=== PATIENT | female | born 1960 ===

== ENCOUNTER 2024-07-05 05:44 | Day surgery (SDC) | payer OTHER ==
[~2024-07-05] VITALS: Ht 157.5 cm; Wt 60.3 kg
[~2024-07-05 05:44] MED LIST: ACTIVELLA 1 MG1 EACH PO; CIDAFLEX TABLE1 EACH PO; COZAAR50 MG PO; FLECAINIDE ACET50 MG PO; MULTIPLE VITAM1 EAC2 PO; PROMETRIUM200 MG PO
[2024-07-05] MEDS ORDERED: POVIDONE-IODINE 118 ML BOTT TOP ONE (09:45)
[2024-07-05] MEDS ORDERED: IBU600 MG PO (09:59)
== END 2024-07-05 14:20 | disposition home or self-care (01) ==
LOC: CIR.AMB 05:44
PROVIDERS: ATTEND Obstetrics & Gynecology Gynecology
DX: N85.01 Benign endometrial hyperplasia (principal); N95.0 Postmenopausal bleeding; I10 Essential (primary) hypertension; F41.9 Anxiety disorder, unspecified; Z88.5 Allergy status to narcotic agent

== ENCOUNTER 2024-10-21 10:00 | Inpatient (IN) | payer OTHER ==
[~2024-10-21] VITALS: Ht 157.5 cm; Wt 59.4 kg
[~2024-10-21 10:00] MED LIST changes: +IBU600 MG PO
[2024-10-26 15:38] LABS: RH POSITIVE
[2024-11-01] MEDS ORDERED: POVIDONE-IODINE 118 ML BOTT TOP ONE (13:15)
[2024-11-01] MEDS ORDERED: CEFAZOLIN SODIUM 1,000 MG VIAL IV ONE (13:15)
[2024-11-01] MEDS ORDERED: ONDANSETRON HCL 2 MG/ML VIAL IV PRN (14:15)
[2024-11-01] MEDS ORDERED: GABAPENTIN 300 MG CAPSULE PO PRN (14:15)
[2024-11-01] MEDS ORDERED: RINGERS SOLUTION,LACTATED 1,000 ML IV SCH (14:15)
[2024-11-01] MEDS ORDERED: KETOROLAC TROMETHAMINE 30 MG VIAL IV PRN (14:15)
[2024-11-01] MEDS ORDERED: SURGIFLO APPLICATOR 1 EACH APPL TOP ONE (14:45)
[2024-11-01] MEDS ORDERED: HEMOSTATIC MATRIX WITH THROMBIN KIT TOP ONE (14:45)
[2024-11-01] MEDS ORDERED: MORPHINE SULFATE 4 MG/ML VIAL IV ONE ×2 (15:05→16:40)
[2024-11-01 16:18] LABS: HEMATOCRIT 39.2 % (36.0-45.00); HEMOGLOBIN 13.5 g/dL (12.0-15.00); MEAN CELL VOLUME 82.3 fL (80.00-100.00); MEAN CORPUSCULAR HEMOGLOBIN 28.3 pg (27.00-32.0); MEAN CORPUSCULAR HGB CONC 34.4 g/dl (32.0-36.0); PLATELET COUNT 170 K/uL (150-450); RED BLOOD COUNT 4.76 M/uL (4.00-6.00); RED CELL DISTRIBUTION WIDTH 13.7 % (11.5-14.5)
[2024-11-01] MEDS ORDERED: FF) FLECAINIDE ACETATE 50MG TAB PO SCH (17:00)
[2024-11-01 17:37] VITALS: BP 127/81; O2SAT 100
[2024-11-01] MEDS ORDERED: CEFAZOLIN SODIUM 1,000 MG VIAL IV SCH (18:00)
[2024-11-01] MEDS ORDERED: FF) FLECAINIDE ACETATE 50MG TAB PO STA (18:14)
[2024-11-01] MEDS ORDERED: ENALAPRILAT DIHYDRATE 1.25 MG/ML VIAL IV PRN (18:30)
[2024-11-01 20:44] VITALS: BP 101/68
[2024-11-02] VITALS: BP 94/57
[2024-11-02] MEDS ORDERED: FF) FLECAINIDE ACETATE 50MG TAB PO SCH ×2 (06:00→17:00)
[2024-11-02 06:28] LABS: HEMATOCRIT 38.2 % (36.0-45.00); HEMOGLOBIN 12.9 g/dL (12.0-15.00); MEAN CELL VOLUME 83.9 fL (80.00-100.00); MEAN CORPUSCULAR HEMOGLOBIN 28.3 pg (27.00-32.0); MEAN CORPUSCULAR HGB CONC 33.8 g/dl (32.0-36.0); PLATELET COUNT 172 K/uL (150-450); RED BLOOD COUNT 4.55 M/uL (4.00-6.00); RED CELL DISTRIBUTION WIDTH 13.4 % (11.5-14.5)
[2024-11-02] MEDS ORDERED: IBU800 MG PO (07:00)
[2024-11-02] MEDS ORDERED: GABAPENTIN300 MG PO (07:18)
[2024-11-02 08:01] VITALS: BP 113/74
[2024-11-02] MEDS ORDERED: LOSARTAN POTASSIUM 50 MG TABLET PO SCH (09:00)
[2024-11-02] MEDS ORDERED: ENOXAPARIN SODIUM 40 MG/0.4 ML SYRINGE SUBCUTANEO SCH (09:00)
== END 2024-11-02 10:53 | disposition home or self-care (01) | DRG 743 ==
LOC: O/R 11-01 06:25 → OB/GYN 11-01 06:25
PROVIDERS: Internal Medicine Geriatric Medicine; ADMIT Obstetrics & Gynecology Gynecology; ATTEND Obstetrics & Gynecology Gynecology
PROC: 0UT74ZZ Resection of Bilateral Fallopian Tubes, Percutaneous Endoscopic Approach (ICD-10-PCS; 2024-11-01)
PROC: 0UT24ZZ Resection of Bilateral Ovaries, Percutaneous Endoscopic Approach (ICD-10-PCS; 2024-11-01)
PROC: 0UT94ZZ Resection of Uterus, Percutaneous Endoscopic Approach (ICD-10-PCS; principal; 2024-11-01 18:00)
DX: D25.1 Intramural leiomyoma of uterus (principal); D25.2 Subserosal leiomyoma of uterus; N95.0 Postmenopausal bleeding; Z20.822 Contact with and (suspected) exposure to COVID-19; N80.03 Adenomyosis of the uterus